=== PATIENT | female | born 1950 | race African-American/Black ===

== ENCOUNTER → 2019-11-21 | Outpatient (CLI) | payer MEDICARE | LOC: SJCVC 15:11 | PROVIDERS: ATTEND Internal Medicine Cardiovascular Disease | DX: R07.89 Other chest pain (principal); R06.09 Other forms of dyspnea; K21.9 Gastro-esophageal reflux disease without esophagitis; R60.9 Edema, unspecified; Z79.899 Other long term (current) drug therapy ==

== ENCOUNTER → 2019-11-22 | Outpatient (CLI) | payer MEDICARE | LOC: SJCVCIMAG 10:31 | PROVIDERS: ATTEND Internal Medicine Cardiovascular Disease | DX: I11.9 Hypertensive heart disease without heart failure (principal); K21.9 Gastro-esophageal reflux disease without esophagitis; Z79.899 Other long term (current) drug therapy ==

== ENCOUNTER → 2019-12-06 | Outpatient (CLI) | payer MEDICARE | LOC: SJCVCIMAG 10:16 | PROVIDERS: ATTEND Internal Medicine Cardiovascular Disease | DX: R07.9 Chest pain, unspecified (principal); R06.09 Other forms of dyspnea; K21.9 Gastro-esophageal reflux disease without esophagitis; R60.9 Edema, unspecified; I10 Essential (primary) hypertension; Z79.899 Other long term (current) drug therapy ==